=== PATIENT | female | born 1975 | race Two or more races ===

== ENCOUNTER 2022-08-13 10:24 | Inpatient (IN) | payer MEDICAID, OTHER ==
[~2022-08-13] VITALS: Ht 162.6 cm; Wt 73.2 kg
[2022-08-13 11:43] LABS: Albumin 3.6 g/dL (3.4-5.0); BUN/Creatinine Ratio 12.2; Calcium 8.6 mg/dL (8.5-10.1); Potassium 3.2 mmol/L (3.5-5.1)
[2022-08-13 11:46] LABS: Total Protein 8.9 g/dL (6.4-8.2)
[2022-08-13 12:14] LABS: Basophils # (auto) 0.1 10 ^3/uL (0-0.2); Basophils % (auto) 1.3 % (0.0-2.0); Eosinophils # (auto) 0.2 10 ^3/uL (0-0.8); Eosinophils % (auto) 2.6 % (0.0-7.0); Hematocrit 22.3 % (36.0-46.0); Lymphocytes # (auto) 1.7 10 ^3/uL (0.4-5.4); Lymphocytes % (auto) 26.3 % (10.0-50.0); Mean Corpuscular Hemoglobin 13.4 pg (28.0-32.0); Mean Corpuscular Hgb Conc. 27.3 g/dL (32.0-36.0); Mean Corpuscular Volume 49.2 fL (80.0-100.0); Monocytes # (auto) 0.5 10 ^3/uL (0-1.3); Monocytes % (auto) 7.5 % (0.0-12.0); Neutrophils % (auto) 62.3 % (37.0-80.0); Nucleated Red Blood Cells % 0.1 %; Red Blood Cells 4.53 10^6/uL (4.0-5.20); White Blood Cell 6.4 10^3/uL (4.4-10.8)
[2022-08-13 12:31] LABS: Urine Bacteria FEW /hpf (None Seen); Urine Blood Negative /uL (Negative); Urine Hyaline Cast FEW /lpf (0 - 2); Urine Mucus FEW (None Seen); Urine Specific Gravity 1.022 (1.001-1.035); Urine WBC 17 /hpf (0 - 5)
[2022-08-13] MEDS ORDERED: SODIUM CHLORIDE 0.9% 1,000 ML IV ONE (13:00)
[2022-08-13] MEDS ORDERED: SODIUM CHLORIDE 0.9% 500 ML IVB ONE (13:00)
[2022-08-13 13:27] LABS: Magnesium 1.8 mg/dL (1.6-2.6)
[2022-08-13 13:32] LABS: Hemoglobin 6.1 g/dL (12.2-16.2); Red Cell Distribution Width 20.4 % (11.8-14.3)
[2022-08-13 13:38] LABS: INR 0.98 (0.9-1.15); Partial Thromboplastin Time 23.1 sec (24.6-33.4)
[2022-08-13] MEDS ORDERED: cefTRIAXone 1GM/50ML D5W 50 ML IV ONE (15:30)
[2022-08-13] MEDS ORDERED: POTASSIUM EFFERVESENT TAB 25 MEQ PO ONE (15:30)
[2022-08-13] MEDS ORDERED: SODIUM FERR GLUC 62.5MG/5ML 125 MG in SODIUM CHL 0.9% 100 ML IV ONE (15:45)
[2022-08-13] MEDS ORDERED: DEXTROSE (50%) 50ML SYRG IV PRN (16:00)
[2022-08-13 17:59] LABS: Folate (Folic Acid) 16.83 ng/mL (5.38-24)
[2022-08-13] MEDS: ACCU-CHEK COMFORT CURVE STRIP VI SCH ×2 (18:32→22:28)
[2022-08-13] MEDS: InsuLIN REG 1unit/0.01ml Soln (100units/ml) SC SCH ×2 (18:43→22:29)
[2022-08-13] MEDS: SODIUM CHLORIDE 0.9% 1,000 ML IV SCH (18:44)
[2022-08-13 20:40] VITALS: BP 162/94
[2022-08-13 20:55] VITALS: BP 152/93
[2022-08-13 21:10] VITALS: BP 152/91
[2022-08-13] MEDS: BETAMETHASONE DIPROP0.05% TOPICAL CREAM 15GM TOP SCH (22:00)
[2022-08-13 23:35] VITALS: BP 173/101
[2022-08-13 23:50] VITALS: BP 162/90
[2022-08-14] VITALS (10 sets, daily range): BP systolic 137–174; BP diastolic 72–102
[2022-08-14] MEDS: diphenhdrAMINE HCL 50 MG/1 ML VL IV PRN ×2 (01:16→20:18)
[2022-08-14] MEDS ORDERED: LISI40TA11 PO (02:54)
[2022-08-14] MEDS ORDERED: HYDR25TA4 PO (02:55)
[2022-08-14] MEDS ORDERED: METF-370 PO (02:56)
[2022-08-14] MEDS ORDERED: cloNIDine HCL 0.1 MG TAB PO ONE (03:30)
[2022-08-14 04:57] LABS: Basophils # (auto) 0 10 ^3/uL (0-0.2); Eosinophils # (auto) 0.1 10 ^3/uL (0-0.8); Monocytes # (auto) 0.5 10 ^3/uL (0-1.3); Nucleated Red Blood Cells % 0.2 %; White Blood Cell 6.8 10^3/uL (4.4-10.8)
[2022-08-14 04:59] LABS: Basophils % (auto) 0.5 % (0.0-2.0); Eosinophils % (auto) 1.9 % (0.0-7.0); Hematocrit 27.6 % (36.0-46.0); Hemoglobin 7.9 g/dL (12.2-16.2); Lymphocytes % (auto) 29.3 % (10.0-50.0); Mean Corpuscular Hemoglobin 16.5 pg (28.0-32.0); Mean Corpuscular Hgb Conc. 28.8 g/dL (32.0-36.0); Mean Corpuscular Volume 57.4 fL (80.0-100.0); Monocytes % (auto) 7.8 % (0.0-12.0); Neutrophils # (auto) 4.1 10 ^3/uL (1.6-8.6); Neutrophils % (auto) 60.5 % (37.0-80.0)
[2022-08-14 05:06] LABS: Albumin 3.2 g/dL (3.4-5.0); Calcium 8.4 mg/dL (8.5-10.1); Potassium 3.5 mmol/L (3.5-5.1)
[2022-08-14 05:08] LABS: BUN/Creatinine Ratio 15.2
[2022-08-14 05:11] LABS: Bilirubin, Total 1.3 mg/dL (0.2-1.0); Red Cell Distribution Width 30.3 % (11.8-14.3); Total Protein 7.5 g/dL (6.4-8.2)
[2022-08-14] MEDS: ACCU-CHEK COMFORT CURVE STRIP VI SCH ×4 (06:56→22:25)
[2022-08-14] MEDS: InsuLIN REG 1unit/0.01ml Soln (100units/ml) SC SCH ×4 (07:31→22:41)
[2022-08-14] MEDS: cefTRIAXone 1GM/50ML D5W 50 ML IV SCH (09:41)
[2022-08-14] MEDS: SODIUM CHLORIDE 0.9% 1,000 ML IV SCH (09:43)
[2022-08-14] MEDS: BETAMETHASONE DIPROP0.05% TOPICAL CREAM 15GM TOP SCH ×2 (11:35→22:41)
[2022-08-14] MEDS: SODIUM FERR GLUC 62.5MG/5ML 125 MG in SODIUM CHL 0.9% 100 ML IV SCH (13:19)
[2022-08-14] MEDS: hydrALAZINE HCL 20 MG/ML VL IV PRN (16:32)
[2022-08-14 18:03] LABS: Cholesterol 135 mg/dL (< 200); HDL Cholesterol 33 mg/dL (40-59); LDL Cholesterol 85 mg/dL (< 100); Triglycerides 119 mg/dL (< 150)
[2022-08-14] MEDS: ACETAMINOPHEN 325 MG TAB PO PRN (21:02)
[2022-08-15] VITALS (7 sets, daily range): BP systolic 88–204; BP diastolic 54–115
[2022-08-15] MEDS: SODIUM CHLORIDE 0.9% 1,000 ML IV SCH ×2 (01:20→18:00)
[2022-08-15 05:26] LABS: Basophils # (auto) 0.1 10 ^3/uL (0-0.2); Eosinophils # (auto) 0.4 10 ^3/uL (0-0.8); Eosinophils % (auto) 4.5 % (0.0-7.0); Hemoglobin 7.6 g/dL (12.2-16.2); Lymphocytes # (auto) 2.4 10 ^3/uL (0.4-5.4); Lymphocytes % (auto) 29.9 % (10.0-50.0); Mean Corpuscular Hemoglobin 16.1 pg (28.0-32.0); Mean Corpuscular Hgb Conc. 28.2 g/dL (32.0-36.0); Mean Corpuscular Volume 57.1 fL (80.0-100.0); Monocytes # (auto) 0.5 10 ^3/uL (0-1.3); Monocytes % (auto) 6.2 % (0.0-12.0); Neutrophils # (auto) 4.6 10 ^3/uL (1.6-8.6); Neutrophils % (auto) 58.4 % (37.0-80.0); Nucleated Red Blood Cells % 0.4 %; Red Blood Cells 4.73 10^6/uL (4.0-5.20); White Blood Cell 7.9 10^3/uL (4.4-10.8)
[2022-08-15 05:28] LABS: Red Cell Distribution Width 28.1 % (11.8-14.3)
[2022-08-15 05:40] LABS: Potassium 3.8 mmol/L (3.5-5.1)
[2022-08-15 05:44] LABS: BUN/Creatinine Ratio 16.2; Calcium 8.5 mg/dL (8.5-10.1)
[2022-08-15] MEDS: ACCU-CHEK COMFORT CURVE STRIP VI SCH ×4 (06:18→22:00)
[2022-08-15] MEDS: InsuLIN REG 1unit/0.01ml Soln (100units/ml) SC SCH ×4 (06:21→23:43)
[2022-08-15] MEDS: ACETAMINOPHEN 325 MG TAB PO PRN ×2 (10:02→20:33)
[2022-08-15] MEDS: cefTRIAXone 1GM/50ML D5W 50 ML IV SCH (10:02)
[2022-08-15] MEDS: BETAMETHASONE DIPROP0.05% TOPICAL CREAM 15GM TOP SCH ×2 (10:03→23:44)
[2022-08-15] MEDS ORDERED: HYDR25TA4 PO (10:26)
[2022-08-15] MEDS ORDERED: METF-370 PO (10:26)
[2022-08-15] MEDS ORDERED: LISI40TA11 PO (10:26)
[2022-08-15] MEDS ORDERED: FER325T PO (10:26)
[2022-08-15] MEDS ORDERED: LISINOPRIL 20 MG TAB PO ONE (11:00)
[2022-08-15] MEDS: SODIUM FERR GLUC 62.5MG/5ML 125 MG in SODIUM CHL 0.9% 100 ML IV SCH (12:00)
[2022-08-15] MEDS ORDERED: HCTZ 25 MG TAB PO ONE (16:15)
[2022-08-15] MEDS: hydrALAZINE HCL 20 MG/ML VL IV PRN (20:54)
[2022-08-15] MEDS: diphenhdrAMINE HCL 50 MG/1 ML VL IV PRN (20:55)
== END 2022-08-16 00:14 | disposition home or self-care (01) | DRG 663 ==
LOC: ER 10:24 → EDSEX 10:24 → OVERFLOW 15:51 → CENTRAL 08-14 15:51
PROVIDERS: ADMIT Nurse Practitioner Family; ATTEND Internal Medicine Pulmonary Disease
PROC: 30233N1 Transfusion of Nonautologous Red Blood Cells into Peripheral Vein, Percutaneous Approach (ICD-10-PCS; principal; 2022-08-13)
DX: D50.9 Iron deficiency anemia, unspecified (principal); E11.65 Type 2 diabetes mellitus with hyperglycemia; N39.0 Urinary tract infection, site not specified; E87.6 Hypokalemia; Z20.822 Contact with and (suspected) exposure to COVID-19; I10 Essential (primary) hypertension; L40.0 Psoriasis vulgaris; Z82.3 Family history of stroke; Z82.49 Family history of ischemic heart disease and other diseases of the circulatory system; Z83.3 Family history of diabetes mellitus
CPT/HCPCS: 36415; 36430; 71045; 80048; 80053; 80061; 81001; 82607; 82746; 82962; 83036; 83540; 83550; 83690; 83735; 84443; 84702; 85025; 85610; 85730; 86141; 86850; 86900; 86901; 86920; 87086; 87426; 96361; 96365; G0378; J0696; J1815